=== PATIENT | male | born 1995 | race African-American/Black ===

== ENCOUNTER 2025-03-15 14:40 | Inpatient (IN) | payer BC, MEDICAID ==
[~2025-03-15] VITALS: Ht 193 cm; Wt 86.2 kg
[2025-03-15 21:30] VITALS: BP 132/72; PULSE 77; RESP 18; TEMP 97.8; O2SAT 97
[2025-03-15] MEDS ORDERED: loperamide 2mg capsule PO PRN (21:45)
[2025-03-15] MEDS ORDERED: mag hydrox/Alum hydrox/simeth 30ml oral suspension PO PRN (21:45)
[2025-03-15] MEDS ORDERED: magnesium hydroxide 30ml (MOM) UD suspension PO PRN (21:45)
[2025-03-16] MEDS ORDERED: LEVE10002 PO (06:47)
[2025-03-16 07:00] VITALS: RESP 14; O2SAT 99
[2025-03-16 07:33] VITALS: BP 123/69; PULSE 59; RESP 14; TEMP 97.8; O2SAT 99
[2025-03-16 11:25] LABS: MEAN PLATELET VOLUME 8.3 FL (7.4-10.4); RED CELL DISTRIBUTION WIDTH 13.8 % (11.5-14.5)
[2025-03-16 12:03] LABS: CHOL/HDL RATIO 1.8 (0.00-4.99); CREATININE 0.82 MG/DL (0.60-1.10); ETHANOL < 10 MG/DL (<10); LDL CHOLESTEROL 59 MG/DL (50-100); TOTAL CARBON DIOXIDE 28.1 MMOL/L (24-32); eCRCL 159 ML/MIN; eGFR > 90 ML/MIN
--- NOTE | 2025-03-16 13:49 | HISTORY AND PHYSICAL ---
History of Present Illness History of Present Illness Patient admitted on 5150 DTS, per 5150, had banged his head on a cement wall, cement currently have a 1cm subdural hematoma with a 6.3 mm shift across mid line. He is refusing assessment today, per chart notes, pt is homeless with hx of meth and THC use, he is diagnosed BP, PTSD and depression. told his nurse that he felt hopeless and slept a lot prior to the suicide attempt. Allergies: Uncoded Allergies: NKDA (Allergy, Unknown, 03/15/25) Past Family History Patient History: Patient reports no known family medical history. Mental Status Exam OBSERVATION Comments NOT ABLE TO ASSESS, PT IS REFUSING TO BE SEEN AT THIS TIME BEHAVIOR Behavior: Withdrawn INSIGHT Insight: Poor Judgment: Poor Assessment/Plan Problems/Diagnosis: (1) Suicide attempt (2) Major depressive disorder, recurrent severe without psychotic features Additional Plan Medication management: 1.Start Zyprexa 5 mg bid 2. Continue lexapro 5 mg daily Continue Q 15 safety checks Legal : Convert to 5250 Total time spend: 20 minutes including but not limited to chart /lab review, consulting with patient RN/SW/CN, ordering meds/labs and documentation CODING VISIT-PSYCHIATRY Date of Service: Mar 16, 2025 Billing Provider: JAN LIPSCOMB DNP Psych Common Visit Codes: [id number] INP/OBS CARE (High) JAN LIPSCOMB DNP Mar 16, 2025 13:49
--- NOTE | 2025-03-16 16:22 | HISTORY AND PHYSICAL-Residence ---
History & Physical Providers to CC Resident Creating Document: GLORIA WARD, RES ~ History of Present Illness Reason for Admit\Complaint: Depression History of Present Illness This is a 29-year-old male with a history of BP, PTSD, depression was brought to the ER and was admitted on 5150 hold. Patient had banged his head on a cement wall., has a subdural hematoma with a 6.3 cm shift across midline. Patient reported he was feeling hungry and did not give any history. Allergies: Uncoded Allergies: NKDA (Allergy, Unknown, 03/15/25) Home Medications Home Medications Active Reported Keppra (Levetiracetam) 1,000 Mg Tablet 1 Tab PO Q12H Past Medical History Past Medical History Denied any past medical history Past Surgical History Surgical History Comment Denied any surgical history Family History Family History: Patient reports no known family medical history. Past Social History Social History Comment History of meth and THC use as per records ROS All Other Systems: Reviewed and Negative Exam Vitals: Vital Signs Date Time Temp Pulse Resp B/P (MAP) Pulse Ox O2 Delivery O2 Flow Rate FiO2 03/16/25 07:33 97.8 59 14 123/69 (87) 99 Room Air General: Awake cooperative in no acute distress. Flat affect HEENT normocephalic atraumatic extraocular movements are intact Neck supple, no JVD Chest: Clear to auscultation, no wheezes crackles rhonchi Heart: Regular rate rhythm, no murmur or gallop rub Abdomen is soft nontender no organomegaly Extremities no cyanosis clubbing or edema Neuro exam is grossly nonfocal. Patient was seen ambulating without assistance. Diagnostic Data Last Recorded Lab Results: 03/16/25 1058 03/16/25 1058 Additional Plan Assessment This is a 29-year-old male with a history of BP, PTSD, depression was brought to the ER and was admitted on 5150 hold. Patient had banged his head on a cement wall., has a subdural hematoma with a 6.3 cm shift across midline. Patient reported he was feeling hungry and did not give any history. Plan Depression PTSD Bipolar disorder -managed as per hospitalist Subdural hematoma -no image findings available in the hospital -ubdural hematoma with a 6.3 cm shift across midline. As per records Labs reviewed Pravahika Dalila M.D PGY2 Date of Service: Mar 16, 2025 Billing Provider: PASTORA MARTINS MD Common Visit Codes: [id number] INP/OBS CARE (HIGH) GLORIA WARD, RES Mar 16, 2025 16:22 PASTORA MARTINS MD Mar 16, 2025 22:17
[2025-03-16 17:35] VITALS: BP 157/108; PULSE 98; RESP 18; O2SAT 99
[2025-03-16] MEDS: haloperidol lactate 5mg/ml inj ONE (17:50)
[2025-03-16 19:00] VITALS: RESP 18; O2SAT 100
[2025-03-16 20:00] VITALS: BP 125/58; PULSE 100; RESP 18; TEMP 97.9; O2SAT 100
[2025-03-16] MEDS: OLANZAPINE 5 MG TABLET PO SCH (20:00)
--- NOTE | 2025-03-16 20:18 | RADIOLOGY REPORT ---
CLINICAL INDICATION: Hand Injury RIGHT TECHNIQUE: 3 radiographic views of the right hand were obtained. Comparison: None FINDINGS/IMPRESSION: There is acute comminuted, mildly displaced fracture of the distal part of the 3rd digit distal phala nx. There is associated soft tissue edema. There appears to be chronic fracture deformity of the distal radius and distal 5th metacarpal. No dislocation.
--- NOTE | 2025-03-16 20:28 | RADIOLOGY REPORT ---
EXAM: CT CT HEAD INDICATION: Head injury 5150 HIT HEAD ON CONCRETE WALL. TRANSFERRED FROM OTHER FACIALITY AND ONLY K NOW HE has a subdural hematoma with a 6.3 cm shift across midline. TECHNIQUE: CT of the head without intravenous contrast. Radiation Dose Information: CT Dose: CTDI volume is 63.79 mGy. Dose-length product is 1171.29 mGy*cm The dose indicators for CT are the volume Computed Tomography (CT) Dose Index (CTDIvol) and the Dose Length Product (DLP), and are measured in units of mGy and mGy-cm, respectively. These indicators are not patient dose, but values generated from the CT scanner acquisition factors. The report includes radiation exposure data for exposures received during this examination. COMPARISON: None FINDINGS: There is a hyperdense extra-axial hematoma contrast in the left cerebral convexity measuring up to 13 mm in greatest thickness. There is local regional mass effect upon the underlying left cerebral mauricio sphere. There is approximately 1 cm of rightward midline shift. There is effacement of the left late ral ventricle with entrapment of the right lateral ventricle. There is no definite uncal herniation. The orbits are normal. The visualized paranasal sinuses and mastoid air cells are clear. The soft t issues and osseous structures appear within normal limits. IMPRESSION: 1. Acute left convexity extra-axial hematoma with locoregional mass effect and midline shift as detai led. Entrapment of the ventricles as detailed. Comparison with prior outside imaging is suggested in assessing acuity and interval change.
[2025-03-16 21:50] VITALS: BP 138/75; PULSE 81; RESP 14; TEMP 98.7; O2SAT 100
[2025-03-16] MEDS ORDERED: magnesium sulf-water 2g/50mL 50 ML IV PRN (22:15)
[2025-03-16] MEDS ORDERED: potassium Cl 40MEQ/1/2NS 520ml 520 ML IV PRN (22:15)
[2025-03-16] MEDS ORDERED: ondansetron/PF 4mg/2ml inj IV PRN (22:15)
[2025-03-16] MEDS ORDERED: magnesium sulf-water 4G/100mL 100 ML IV PRN (22:15)
[2025-03-16] MEDS ORDERED: potassium Cl 20 mEq SR tablet PO PRN ×2 (22:15)
[2025-03-16] MEDS ORDERED: magnesium Cl slow-release 64mg tablet PO PRN (22:15)
[2025-03-16] MEDS ORDERED: magnesium hydroxide 30ml (MOM) UD suspension PO PRN (22:15)
[2025-03-16] MEDS ORDERED: mag hydrox/Alum hydrox/simeth 30ml oral suspension PO PRN (22:15)
--- NOTE | 2025-03-16 22:53 | CONSULTATION REPORT ---
History of Present Illness Providers to CC ~ Reason for Admit\Admit Dx: Depression History of Present Illness [facility] Note # Demographics Consult Type: General Neurology Patient Location: Inpatient First Name: Ed Last Name: Jj Date of : 1995 Age: 29 Gender: Male Facility: [facility] Time of Initial Page (): 03/16/2025 21:41 Time of Return Call ( Time): 03/16/2025 21:42 # HPI History: 29 year-old male was admitted with a traumatic SDH measuring 6mm. Repeat head CT after admission revealed worsening SDH of 13 mm with new midline shift. # Exam Time of Exam (): 03/16/2025 22:42 Vitals: vital signs reviewed Mental Status: - lethargic Language: - aphasia Cranial Nerves: - no facial droop Motor: - normal strength # Data Head CT: - hemorrhage # Assessment Impression: SDH with midline shift # Plan Target Blood Pressure: SBP < 160 Other: - consult neurosurgery - I have discussed my recommendations with the referring provider Disposition: consider transfer to tertiary facility for higher level neurological care # Logistics Attestation of consult completion: The patient is located at: [facility]. Facility staff participated in the visit. I performed this telemedicine visit from my offsite office utilizing interactive 2 way audio and visual telecommunication technology. Total time spent in telemedicine encounter: I spent 15 minutes reviewing clinical data and/or imaging, obtaining history, examining the patient, communicating with the onsite care team, and in preparation of this report. # Demographics First Name: Ed Last Name: Jj Facility: [facility] Electronically signed at 03/16/2025 22:47 () by Yumiko Ibrahim MD Allergies: Uncoded Allergies: NKDA (Allergy, Unknown, 03/15/25) Home Medications Home Medications Active Reported Keppra (Levetiracetam) 1,000 Mg Tablet 1 Tab PO Q12H Past Family History Family History: Patient reports no known family medical history. Physical Exam Last Vital Signs Recorded: Temperature: 98.7, Source: Temporal, Heart Rate: 81, Respiratory Rate: 14, BP: 138/75, Pulse Oximetry: 100, Weight: 86.200 Results Diagram Lab Result Diagram: 03/16/25 1058 03/16/25 1058 YUMIKO IBRAHIM MD Mar 16, 2025 22:53
[2025-03-17] MEDS ORDERED: K and/or MAG REPLACEMENT MC SCH (08:00)
[2025-03-17] MEDS ORDERED: ESCITALOPRAM 10 mg tablet 10 MG TABLET PO SCH (08:00)
[2025-03-17] MEDS ORDERED: docusate sod 100mg capsule PO SCH (08:00)
== END 2025-03-16 21:40 | disposition short-term general hospital (02) | DRG 885 ==
LOC: ADULT MH 21:06 → ORTHO 4S 03-16 21:40
PROVIDERS: ADMIT Psychiatry & Neurology Psychiatry; ATTEND Psychiatry & Neurology Psychiatry
DX: F33.2 Major depressive disorder, recurrent severe without psychotic features (principal); S06.5XAA Traumatic subdural hemorrhage with loss of consciousness status unknown, initial encounter; Z79.899 Other long term (current) drug therapy; F43.10 Post-traumatic stress disorder, unspecified; X58.XXXA Exposure to other specified factors, initial encounter; Y92.89 Other specified places as the place of occurrence of the external cause; Y93.89 Activity, other specified; Y99.8 Other external cause status
CPT/HCPCS: 36415; 70450; 73130; 80053; 80061; 80178; 80183; 80320; 82948; 83036; 84443; 85025; 87081; A6258; J1200; J1630; J2060

== ENCOUNTER 2025-03-19 13:41 | Inpatient (IN) | payer BC, MEDICAID ==
[~2025-03-19] VITALS: Ht 193 cm; Wt 86.2 kg
[~2025-03-19 13:41] MED LIST: LEVE10002 PO
[2025-03-19] MEDS ORDERED: magnesium sulf-water 2g/50mL 50 ML IV PRN (20:45)
[2025-03-19] MEDS ORDERED: potassium Cl 40MEQ/1/2NS 520ml 520 ML IV PRN (20:45)
[2025-03-19] MEDS ORDERED: magnesium hydroxide 30ml (MOM) UD suspension PO PRN (20:45)
[2025-03-19] MEDS ORDERED: mag hydrox/Alum hydrox/simeth 30ml oral suspension PO PRN (20:45)
[2025-03-19] MEDS ORDERED: magnesium Cl slow-release 64mg tablet PO PRN (20:45)
[2025-03-19] MEDS ORDERED: magnesium sulf-water 4G/100mL 100 ML IV PRN (20:45)
[2025-03-19] MEDS ORDERED: potassium Cl 20 mEq SR tablet PO PRN ×2 (20:45)
[2025-03-19] MEDS: HYDROcodone/acetaminophen 5mg/325mg tablet PO PRN (21:27)
[2025-03-19 22:00] VITALS: BP 129/68; PULSE 68; RESP 16; TEMP 98.4; O2SAT 99
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
[2025-03-20 05:00] VITALS: BP 127/70; PULSE 82; RESP 16; TEMP 98.4; O2SAT 99
[2025-03-20] MEDS: K and/or MAG REPLACEMENT MC SCH (07:01)
[2025-03-20] MEDS: docusate sod 100mg capsule PO SCH (08:28)
[2025-03-20 09:59] LABS: MEAN PLATELET VOLUME 8.9 FL (7.4-10.4); RED CELL DISTRIBUTION WIDTH 13.7 % (11.5-14.5)
[2025-03-20 10:00] VITALS: BP 123/67; PULSE 81; RESP 17; TEMP 97.6; O2SAT 98
[2025-03-20 11:28] LABS: CREATININE 0.83 MG/DL (0.60-1.10); TOTAL CARBON DIOXIDE 32.3 MMOL/L (24-32); eCRCL 157 ML/MIN; eGFR > 90 ML/MIN
[2025-03-20 14:35] VITALS: BP 131/76; PULSE 67; RESP 17; TEMP 98.1; O2SAT 97
--- NOTE | 2025-03-20 17:46 | PROGRESS NOTE ---
Daily Progress Note Providers to CC ~ Antibiotic Timeout Antibiotic Ordered?: No Subjective Brief review of patient's previous visit note " A 29-year-old male with no past medical history but has history of bipolar disorder, suicidal intention, depression presented as a transfer from [place] after he hit his head against the wall and a CT head showing subdural hematoma two days ago. After medical clearance patient was transferred to mental health unit in view of depression and suicidal attempt. Patient hit his head against the wall again in mental health unit and a repeat head showed worsening subdural hematoma. Spoke to Dr. Francis (trauma surgeon at [facility]) with regards to the patient's current situation. Dr. Francis requested an ICU bed at [facility] which the transfer center is discussed with the supervisor brine at the hospital. Dr. Francis requested for CT head images on a disc. Patient was transferred to [facility] for higher level of care and for possible craniotomy." Patient is transferred back to [facility] last night.Patient underwent craniectomy on 03/17/2025. Patient was transferred back to [facility] after the surgery and after stabilizing the patient. Patient was cleared for discharge from [facility] to [facility] in terms of clinical stability.Patient remained hemodynamically stable without neurological deficit post surgery. I evaluated the patient today in presence of nursing staff he responded appropriately and cooperated very well during physical examination. 1798 orders are already placed in patient needs sitter. We will also get the psychiatric consultation. Patient denies any excessive pain over the head , no headaches , able to eat and no focal neurological deficit noticed. Objective Vital Signs Date Time Temp Pulse Resp B/P (MAP) Pulse Ox O2 Delivery O2 Flow Rate FiO2 03/20/25 14:35 98.1 67 17 131/76 (94) 97 Room Air Result Diagram: 03/20/25 0423 03/20/25 1027 General-patient not in any acute distress, alert awake ill-appearing, age- appropriate, looks comfortable, able to communicate his needs HEENT-status post craniotomy dressing in place over head, neck supple without elevated JVD, No lymphadenopathy bilaterally. Eyes-no icterus or pallor seen in eyes Chest-clear to auscultation bilaterally, breathing nonlabored no tachypnea, no wheezing, no crepitation, no crackles. Heart-S1-S2 normal, regular heart rate no murmur Abdomen bowel sounds positive on auscultation, soft nondistended nontender no guarding, no rigidity Skin no active skin rash, status post craniotomy dressing in place over head, Neurology-grossly intact, awake oriented Extremity- no pedal edema able to move all 4 extremities Psychiatry - patient is not confused or agitated cooperated during physical examination Problem\\Assessment\\Plan Patient is transferred back to [facility] last night.Patient underwent craniectomy on 03/17/2025. Patient was transferred back to [facility] after the surgery and after stabilizing the patient. Patient was cleared for discharge from [facility] to [facility] in terms of clinical stability.Patient remained hemodynamically stable without neurological deficit post surgery. I evaluated the patient today in presence of nursing staff he responded appropriately and cooperated very well during physical examination. 1798 orders are already placed in patient needs sitter. We will also get the psychiatric consultation. Patient denies any excessive pain over the head , no headaches , able to eat and no focal neurological deficit noticed. Left subdural hematoma status post craniectomy on 03/17/2025 GCS: 15 Skull has been closed with absorbable suture and Dermabond Continue to monitor for surgical wound for infection Follow up with Neurosurgery Clinic in two weeks No further imaging required Appreciate neurosurgery recommendations from [facility] as per above On Keppra Right hand committed at fracture X-ray:acute comminuted, mildly displaced fracture of the distal part of the 3rd digit distal phalanx Pain management Bipolar PTSD Depression Suicidal intention 1798, sitter Psychiatric consultation requested Code status: Full code Diet: Regular DVT prophylaxis: SCD Patient's current condition is guarded I will continue to follow patient in a.m.. Date of Service: Mar 20, 2025 Billing Provider: BHUMIKA GILLILAND MD Common Visit Codes: [id number] INP/OBS CARE(HIGH) BHUMIKA GILLILAND MD Mar 20, 2025 17:46
[2025-03-20 18:00] VITALS: BP 145/83; PULSE 65; RESP 16; TEMP 98.1; O2SAT 97
--- NOTE | 2025-03-20 18:28 | [facility] CONSULT REPORT ---
[facility] Procedure Note [facility] Procedure Note Consult [facility] Note # Demographics Consult Type: General Neurology Patient Location: Inpatient First Name: Ed Last Name: Elkin Date of : 1995 Age: 29 Gender: Male Facility: [facility] Time of Initial Page (): 03/20/2025 18:18 Time of Return Call (): 03/20/2025 18:18 # HPI History: 29yom with bipolar disease, suicidal ideation, depression who p/w craniotomy with hematoma removal on 03/17/25. He was hitting his head on the wall until he developed subdural hematomas. Neuro checks have been within normal limits. Pt has been dropping things from his right hand and has a loss in dex terity all day today. # Scores Time of exam and NIHSS (): 03/20/2025 18:22 Level of Consciousness 1a: [0] = Alert; keenly responsive LOC Questions 1b: [0] = Answers both questions correctly LOC Commands 1c: [0] = Performs both tasks correctly Best Gaze 2: [0] = Normal Visual 3: [0] = No visual loss Facial Palsy 4: [0] = Normal symmetrical movements Motor Arm Left 5a: [0] = No drift Motor Arm Right 5b: [0] = No drift Motor Leg Left 6a: [0] = No drift Motor Leg Right 6b: [0] = No drift Limb Ataxia 7: [0] = Absent Sensory 8: [0] = Normal Best Language 9: [0] = No aphasia Dysarthria 10: [0] = Normal Extinction and Inattention 11: [0] = No abnormality NIHSS Total: 0 # Data Head CT: - per radiologist read acute left convexity aextra-axial hematoma with locoregional mass effect and MLS # Plan Thrombolytic/Intervention: NOT IV Thrombolysis or IA Intervention candidate Thrombolytic Exclusion: > 4.5 hours Intraarterial Exclusion: - clinical exam not consistent with presence of large vessel occlusion (LVO), can reconsider if LVO found on vascular imaging Imaging: (urgency: STAT): - CT Head without contrast Repeat CTH, call back if any abnormal results Imaging: (urgency: routine): - MRI Brain with AND without contrast Other: - If patient has any neurological deterioration please call me back immediately # Logistics Attestation of consult completion: The patient is located at: [facility]. Facility staff participated in the visit. I performed this telemedicine visit from my offsite office utilizing interactive 2 way audio and visual telecommunication technology. Total time spent in telemedicine encounter: I spent 23 minutes reviewing clinical data and/or imaging, obtaining history, examining the patient, communicating with the onsite care team, and in preparation of this report. # Demographics First Name: Ed Last Name: Elkin Facility: [facility] REYES LIRIANO MD Mar 20, 2025 18:28
[2025-03-20] MEDS: ondansetron/PF 4mg/2ml inj IV PRN (19:25)
--- NOTE | 2025-03-20 20:16 | RADIOLOGY REPORT ---
EXAM: CT CT HEAD W/ IV CONTRAST INDICATION: Status post craniotomy, history of subdural hematoma TECHNIQUE: CT of the head with intravenous contrast. Radiation Dose Information: CT Dose: CTDI volume is 62.75 mGy. Dose-length product is 1246.47 mGy*cm The dose indicators for CT are the volume Computed Tomography (CT) Dose Index (CTDIvol) and the Dose Length Product (DLP), and are measured in units of mGy and mGy-cm, respectively. These indicators are not patient dose, but values generated from the CT scanner acquisition factors. The report includes radiation exposure data for exposures received during this examination. COMPARISON: CT CT HEAD on DOS: 03/16/25 FINDINGS: Interval left craniotomy presumably for evacuation of the previously seen left convexity extra-axial hematoma. There is fluid and mild hyperdensity within the left extra-axial space. Scattered pneumocep halus is seen. Interval decrease in locoregional mass effect and midline shift, with rightward shift now measuring approximately 5 mm. There is no hydrocephalus. No acute infarct is seen. Soft tissue sw elling overlies the operative site. The orbits are normal. The paraspinal soft tissues are unremarkable.. IMPRESSION: 1. Postoperative changes status post presumed evacuation of left convexity subdural hematoma with pos toperative changes as detailed. Interval decrease in locoregional mass effect and midline shift. Co ntinued close interval follow-up is recommended.
[2025-03-20 22:00] VITALS: BP 144/87; PULSE 108; RESP 20; TEMP 100; O2SAT 99
--- NOTE | 2025-03-20 22:31 | CONSULTATION REPORT ---
History of Present Illness Providers to CC ~ Reason for Admit\Admit Dx: Subdural hematoma status post craniectomy History of Present Illness [facility] # Demographics Consult Type: General Neurology Patient Location: Inpatient First Name: Ed Last Name: Elkin Date of : 1995 Age: 29 Gender: Male Facility: [facility] Time of Initial Page ([place] ): 03/20/2025 21:53 Time of Return Call ([place] ): 03/20/2025 21:54 # HPI History: 29 year old male with depression, suicidal ideation, s/p craniotomy for self- induced subdural hematoma I was requested to evaluate for a neurologic concern. 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 He tried to hit his head against the wall and developed subdural hematoma and transferred to [facility] for surgery. He was transferred back. Here he was with a sitter and was getting a psychiatric consultation and he was complaining of a headache. Neurology saw him yesterday and they suggested MRI Brain. They have been giving him tylenol so far. Per the nurses, the patient was alert, oriented at the beginning of the shift. He has severe, persistent headache. He feels warm to touch. He is also having increased word-finding difficulties. CT of the brain was acquired at 19:00 which I reviewed and showed expected post- operative changes and no evidence of recurrent hemorrhage. # Scores Time of exam and NIHSS ([place] ): 03/20/2025 22:03 Level of Consciousness 1a: [0] = Alert; keenly responsive LOC Questions 1b: [1] = Answers one correctly LOC Commands 1c: [0] = Performs both tasks correctly Best Gaze 2: [0] = Normal Visual 3: [0] = No visual loss Facial Palsy 4: [0] = Normal symmetrical movements Motor Arm Left 5a: [0] = No drift Motor Arm Right 5b: [0] = No drift Motor Leg Left 6a: [0] = No drift Motor Leg Right 6b: [0] = No drift Limb Ataxia 7: [0] = Absent Sensory 8: [0] = Normal Best Language 9: [1] = Snbn-hh-uxeitqaw aphasia Dysarthria 10: [1] = Itjr-zg-cxqccgvm dysarthria Extinction and Inattention 11: [0] = No abnormality NIHSS Total: 3 # Data Time Head CT personally read by me ([facility]): 03/20/2025 22:03 # Assessment Impression: 1. Increased confusion 2. Subdural hematoma s/p evacuation The patient has some neurologic changes in form of changes in his language and increased headaches. His imaging was normal. The only major post-surgical change at this point would be re-bleed, and his imaging from only a few hours demonstrated no evidence of a re-bleed and he was totally motor intact. I think it is reasonable to monitor for the evening and get MRI Brain without contrast in the AM. # Plan Other: - If patient has any neurological deterioration please call me back immediately Additional Recommendations: SUMMARY: == given recent normal imaging, no need for transfer == monitor overnight == MRI Brain without contrast in the AM Disposition: continue admission # Logistics Attestation of consult completion: The patient is located at: [facility]. Facility staff participated in the visit. I performed this telemedicine visit from my offsite office utilizing interactive 2 way audio and visual telecommunication technology. Consent: Verbal consent was obtained from the patient and/or family for this encounter. Total time spent in telemedicine encounter: I spent 20 minutes reviewing clinical data and/or imaging, obtaining history, examining the patient, communicating with the onsite care team, and in preparation of this report. Critical Care time: 15 minutes of this encounter were critical care time. Due to a high probability of clinically significant, life-threatening neurologic deterioration, the patient required my highest level of preparedness to intervene emergently. I spent this critical care time managing the patient in conjunction with on-site providers who requested my consultation. In addition to the above, this critical care time included recommendation and review of studies, including imaging; arranging an urgent treatment and management plan with on-site providers; evaluation of patient's response to treatment; and documentation. This critical care time was performed to assess and manage the high probability of imminent, life-threatening deterioration that could result in neurologic catastrophe. # Demographics First Name: Ed Last Name: Elkin Facility: [facility] Allergies: Uncoded Allergies: NKDA (Allergy, Unknown, 03/15/25) Home Medications Home Medications Active Reported Keppra (Levetiracetam) 1,000 Mg Tablet 1 Tab PO Q12H Past Family History Family History: Patient reports no known family medical history. Physical Exam Last Vital Signs Recorded: Temperature: 98.1, Source: Temporal, Heart Rate: 67, Respiratory Rate: 17, BP: 131/76, Pulse Oximetry: 97, Weight: 86.200 Results Diagram Lab Result Diagram: 03/20/25 0423 03/20/25 1027 BREE MARTINEZ MD Mar 20, 2025 22:31
[2025-03-21] VITALS (9 sets, daily range): BP systolic 112–139; BP diastolic 62–95; PULSE 61–94; RESP 11–18; TEMP 97.5–99.8; O2SAT 98–100
--- NOTE | 2025-03-21 20:16 | PROGRESS NOTE ---
Daily Progress Note Providers to CC ~ Antibiotic Timeout Antibiotic Ordered?: No Subjective Patient was seen in presence of sitter today patient responded very well to verbal commands cooperated just like yesterday and I have not noticed any new focal neurological deficit. Nursing staff Dawna concerned about the new neurological deficit tele neurology consult requested CT head and MRI of brain ordered. CT head findings reviewed. Objective Vital Signs Date Time Temp Pulse Resp B/P (MAP) Pulse Ox O2 Delivery O2 Flow Rate FiO2 03/21/25 18:30 67 03/21/25 16:00 98.4 18 120/71 (87) 100 Nasal Cannula 1.0 24 Result Diagram: 03/20/25 0423 03/20/25 1027 General-patient not in any acute distress, alert awake ill-appearing, age- appropriate, looks comfortable, able to communicate his needs HEENT-status post craniotomy dressing in place over head, neck supple without elevated JVD, No lymphadenopathy bilaterally. Eyes-no icterus or pallor seen in eyes Chest-clear to auscultation bilaterally, breathing nonlabored no tachypnea, no wheezing, no crepitation, no crackles. Heart-S1-S2 normal, regular heart rate no murmur Abdomen bowel sounds positive on auscultation, soft nondistended nontender no guarding, no rigidity Skin no active skin rash, status post craniotomy dressing in place over head, Neurology-grossly intact, awake oriented Extremity- no pedal edema able to move all 4 extremities Psychiatry - patient is not confused or agitated cooperated during physical examination Problem\Assessment\Plan Patient is transferred back to [facility] last night.Patient underwent craniectomy on 03/17/2025. Patient was transferred back to [facility] after the surgery and after stabilizing the patient. Patient was cleared for discharge from [facility] to [facility] in terms of clinical stability.Patient remained hemodynamically stable without neurological deficit post surgery. I evaluated the patient today in presence of nursing staff he responded appropriately and cooperated very well during physical examination. 1798 orders are already placed in patient needs sitter. We will also get the psychiatric consultation. Patient denies any excessive pain over the head , no headaches , able to eat and no focal neurological deficit noticed. Left subdural hematoma status post craniectomy on 03/17/2025 GCS: 15 Skull has been closed with absorbable suture and Dermabond Continue to monitor for surgical wound for infection Follow up with Neurosurgery Clinic in two weeks No further imaging required Appreciate neurosurgery recommendations from [facility] as per above On Keppra Right hand committed at fracture X-ray:acute comminuted, mildly displaced fracture of the distal part of the 3rd digit distal phalanx Pain management Bipolar PTSD Depression Suicidal intention 1798, sitter Psychiatric consultation requested Code status: Full code Diet: Regular DVT prophylaxis: SCD Patient's current condition is guarded I will continue to follow patient in a.m.. Date of Service: Mar 21, 2025 Billing Provider: BHUMIKA GILLILAND MD Common Visit Codes: [id number] INP/OBS CARE(HIGH) BHUMIKA GILLILAND MD Mar 21, 2025 20:16
[2025-03-22 06:00] VITALS: BP 116/70; PULSE 79; RESP 15; TEMP 99; O2SAT 99
[2025-03-22 06:05] LABS: MEAN PLATELET VOLUME 8.8 FL (7.4-10.4); RED CELL DISTRIBUTION WIDTH 13.4 % (11.5-14.5)
[2025-03-22 06:17] LABS: CREATININE 0.80 MG/DL (0.60-1.10); TOTAL CARBON DIOXIDE 30.3 MMOL/L (24-32); eCRCL 163 ML/MIN; eGFR > 90 ML/MIN
[2025-03-22 10:00] VITALS: BP 128/77; PULSE 94; RESP 14; TEMP 99; O2SAT 99
--- NOTE | 2025-03-22 17:54 | PROGRESS NOTE ---
Daily Progress Note Providers to CC ~ Antibiotic Timeout Antibiotic Ordered?: No Subjective The patient complains of weakness in his right hand and states that if he is holding a spoon for any length of time he will drop it this is very difficult to feed himself. The patient has a mildly comminuted fracture at the distal 3rd phalange and a chronic fracture at the 5th metacarpal. Objective Vital Signs Date Time Temp Pulse Resp B/P (MAP) Pulse Ox O2 Delivery O2 Flow Rate FiO2 03/22/25 10:00 99.0 94 14 128/77 (94) 99 Room Air 03/21/25 16:00 1.0 24 Result Diagram: 03/22/25 0502 03/22/25 0502 Gen. No acute distress alert and oriented 4 Lungs clear to ascultation bilaterally, no wheezes rales or rhonchi appreciated Heart normal sinus rhythm no murmurs rubs or clicks noted Abdomen soft nontender bowel sounds are normoactive Lower extremities no clubbing cyanosis, nor edema appreciated bilaterally Problem\Assessment\Plan Patient is transferred back to [facility] last night.Patient underwent craniectomy on 03/17/2025. Patient was transferred back to [facility] after the surgery and after stabilizing the patient. Patient was cleared for discharge from [facility] to [facility] in terms of clinical stability.Patient remained hemodynamically stable without neurological deficit post surgery. I evaluated the patient today in presence of nursing staff he responded appropriately and cooperated very well during physical examination. 1798 orders are already placed in patient needs sitter. We will also get the psychiatric consultation. Patient denies any excessive pain over the head , no headaches , able to eat and no focal neurological deficit noticed. Left subdural hematoma status post craniectomy on 03/17/2025 GCS: 15 Skull has been closed with absorbable suture and Dermabond Continue to monitor for surgical wound for infection Follow up with Neurosurgery Clinic in two weeks No further imaging required Appreciate neurosurgery recommendations from [facility] as per above On Keppra Right hand committed at fracture X-ray:acute comminuted, mildly displaced fracture of the distal part of the 3rd digit distal phalanx Pain management Right hand weakness Likely secondary to acute fracture has a 3rd phalanges however an MRI of the head with IV contrast is ordered. Bipolar PTSD Depression Suicidal intention 1798, sitter Psychiatric consultation requested Code status: Full code Diet: Regular DVT prophylaxis: SCD Date of Service: Mar 22, 2025 Billing Provider: CASEY BRYANT DO Common Visit Codes: [id number] INP/OBS CARE(HIGH) CASEY BRYANT DO Mar 22, 2025 17:54
--- NOTE | 2025-03-22 17:55 | RADIOLOGY REPORT ---
PROCEDURE: MR MRI HEAD Indication: s/p craniotomy for subdural hematoma COMPARISON: CT CT HEAD W/ IV CONTRAST on DOS: 03/20/25, TECHNIQUE: Multiplanar multisequence images of the brain are obtained. FINDINGS: There is no abnormal diffusion restriction. There is left craniotomy. There is left frontoparietal ex tra-axial fluid mixed densitycollection measuring 14 mm in thickness, similar to previous CT scan. Th ere is also presence of pneumocephalus within this collection. This collection appears indistinct fro m the underlying subdural hematoma described below it measures approximately 5.6 x 1.4 cm.. Subdural hematoma overlying the left frontal lobe measuring 5 mm in thickness. Subdural hematoma over lying the left temporal lobe measuring 3 mm in thickness. Minimal qkjf-ah-ertwq midline shift of approximately 4 mm, unchanged from prior CT. The ventricles ar e normal in size. The major intracranial flow voids are preserved. The cisterns are patent. Mastoids well pneumatized. Bilateral maxillary sinus disease. The sinuses and mastoids are well pneumatized. The visualized orbits are unremarkable. IMPRESSION: No acute cerebrovascular ischemia. Left frontoparietal extra-axial fluid collection measuring 14 mm in thickness at the site of the cran iotomy. This measures approximately 5.6 cm AP x 1.4 cm transverse. Overall, this appears similar to t he previous examination. Residual left frontal and temporal subdural hematoma measuring up to 5 mm in thickness. 3 mm dnsg-pw-uujiw midline shift, similar to prior CT. Other findings as described.
[2025-03-22 18:30] VITALS: BP 130/85; PULSE 94; RESP 14; TEMP 100; O2SAT 98
[2025-03-22 22:00] VITALS: BP 143/79; PULSE 73; RESP 16; TEMP 99.6; O2SAT 98
[2025-03-23 05:00] LABS: MEAN PLATELET VOLUME 8.3 FL (7.4-10.4); RED CELL DISTRIBUTION WIDTH 13.5 % (11.5-14.5)
[2025-03-23 05:13] LABS: CREATININE 0.82 MG/DL (0.60-1.10); TOTAL CARBON DIOXIDE 30.6 MMOL/L (24-32); eCRCL 159 ML/MIN; eGFR > 90 ML/MIN
[2025-03-23 06:00] VITALS: BP 133/79; PULSE 80; RESP 17; TEMP 97.7; O2SAT 99
[2025-03-23 08:59] VITALS: RESP 18
[2025-03-23 10:00] VITALS: BP 137/77; PULSE 103; RESP 14; TEMP 99.3; O2SAT 99
--- NOTE | 2025-03-23 16:13 | PROGRESS NOTE ---
Daily Progress Note Providers to CC ~ Antibiotic Timeout Antibiotic Ordered?: No Subjective The patient has no acute complaints his MRI demonstrated a 5 mm residual subdural hematoma and postop changes due to the craniotomy- there were no acute findings. Objective Vital Signs Date Time Temp Pulse Resp B/P (MAP) Pulse Ox O2 Delivery O2 Flow Rate FiO2 03/23/25 10:00 99.3 103 14 137/77 (97) 99 Room Air 03/21/25 16:00 1.0 24 Result Diagram: 03/23/2542603/23/25426 Gen. No acute distress alert and oriented 4 Lungs clear to ascultation bilaterally, no wheezes rales or rhonchi appreciated Heart normal sinus rhythm no murmurs rubs or clicks noted Abdomen soft nontender bowel sounds are normoactive Lower extremities no clubbing cyanosis, nor edema appreciated bilaterally Problem\\Assessment\\Plan Patient is transferred back to [facility] last night.Patient underwent craniectomy on 03/17/2025. Patient was transferred back to [facility] after the surgery and after stabilizing the patient. Patient was cleared for discharge from [facility] to [facility] in terms of clinical stability.Patient remained hemodynamically stable without neurological deficit post surgery. I evaluated the patient today in presence of nursing staff he responded appropriately and cooperated very well during physical examination. 1799 orders are already placed in patient needs sitter. We will also get the psychiatric consultation. Patient denies any excessive pain over the head , no headaches , able to eat and no focal neurological deficit noticed. Left subdural hematoma status post craniectomy on 03/17/2025 GCS: 15 Skull has been closed with absorbable suture and Dermabond Continue to monitor for surgical wound for infection Follow up with Neurosurgery Clinic in two weeks No further imaging required Appreciate neurosurgery recommendations from [facility] as per above On Keppra Right hand committed at fracture X-ray:acute comminuted, mildly displaced fracture of the distal part of the 3rd digit distal phalanx Pain management Right hand weakness Likely secondary to acute fracture has a 3rd phalanges however an MRI of the head with IV contrast is ordered. MRI demonstrates the following findings: "No acute cerebrovascular ischemia. Left frontoparietal extra-axial fluid collection measuring 14 mm in thickness at the site of the craniotomy. This measures approximately 5.6 cm AP x 1.4 cm transverse. Overall, this appears similar to the previous examination. Residual left frontal and temporal subdural hematoma measuring up to 5 mm in thickness. 3 mm zxng-tc-njjwv midline shift, similar to prior CT." The patient has no acute complaints in his weakness is stable Bipolar PTSD Depression Suicidal intention 1798, anater Psychiatric consultation requested Code status: Full code Diet: Regular DVT prophylaxis: SCD The patient is cleared to be evaluated by [facility] today 03/23/2025 Date of Service: Mar 23, 2025 Billing Provider: CASEY BRYANT DO Common Visit Codes: [id number] INP/OBS CARE(HIGH) CASEY BRYANT DO Mar 23, 2025 16:13
[2025-03-23 18:00] VITALS: BP 110/56; PULSE 85; RESP 12; TEMP 99.1; O2SAT 99
[2025-03-23 20:00] VITALS: RESP 12; O2SAT 99
[2025-03-23 22:00] VITALS: BP 128/78; PULSE 90; RESP 16; TEMP 98.2; O2SAT 96
[2025-03-24 05:00] LABS: MEAN PLATELET VOLUME 8.1 FL (7.4-10.4); RED CELL DISTRIBUTION WIDTH 13.3 % (11.5-14.5)
[2025-03-24 05:10] LABS: CREATININE 0.83 MG/DL (0.60-1.10); TOTAL CARBON DIOXIDE 30.7 MMOL/L (24-32); eCRCL 157 ML/MIN
[2025-03-24 05:11] LABS: eGFR > 90 ML/MIN
[2025-03-24 06:00] VITALS: BP 133/76; PULSE 82; RESP 18; TEMP 98.9; O2SAT 97
[2025-03-24 08:25] VITALS: RESP 16; O2SAT 99
[2025-03-24 10:00] VITALS: BP 140/75; PULSE 103; RESP 14; TEMP 97.9; O2SAT 100
--- NOTE | 2025-03-24 11:51 | RADIOLOGY REPORT ---
CLINICAL INFORMATION: 29 years old, Male; change in mental status. TECHNIQUE: Axial imaging was obtained through the brain without contrast. Coronal and sagittal reform atted images were obtained, reviewed, and stored. Images were reviewed in brain and bone windows. Al l CT scans at this medical facility are performed using dose modulation techniques as appropriate to a performed exam including the following: Automated exposure control was utilized; adjustment of the MA and/or KV according to patient size; and use of iterative reconstruction technique. CTDIvol = 52.4 8 mGy DLP = 787.58 mGy-cm COMPARISON: MR MRI HEAD on DOS: 03/22/25, CT CT HEAD W/ IV CONTRAST on DOS: 03/20/25, CT CT HEAD on DOS : 03/16/25 FINDINGS: Postsurgical changes of left craniotomy again noted with extra-axial fluid collection adjac ent to the craniotomy site measuring up to 1.4 cm in greatest thickness, minimally changed compared t o the prior exam with mixed density, including areas of hyperdense hemorrhage, also seen on the prior exam. Previously seen pneumocephalus has decreased compared to the prior exam. No new areas of acute intracranial hemorrhage. There is edema and hemorrhage in the left parietal scalp adjacent to the c raniotomy site, appears minimally changed compared to the prior exam. Slight rightward midline shift up to 3 mm, minimally changed compared to the exam dated 03/20/2025, but decreased compared to the ex am on 03/16/2025, prior to the craniotomy. Paranasal sinuses and mastoid air cells are clear. IMPRESSION: 1. Similar-appearing postsurgical changes of left craniotomy with extra-axial hemorrhage subjacent to the craniotomy site and overlying scalp edema and hemorrhage. 2. Slight rightward midline shift up to 3 mm, unchanged. 3. No new areas of acute intracranial hemorrhage are seen.
--- NOTE | 2025-03-24 13:28 | [facility] CONSULT REPORT ---
[facility] Procedure Note [facility] Procedure Note Consult [facility] # Demographics Consult Type: General Neurology Patient Location: Inpatient First Name: Ed Last Name: Elkin Date of : 1995 Age: 29 Gender: Male Facility: [facility] Time of Initial Page (): 03/24/2025 11:56 Time of Return Call (): 03/24/2025 11:56 Phone Agreement: - phone consult deemed mutually sufficient for patient care # HPI Chief Complaint: - speech changes History: 29M with recent SDH on 03/15 s/p evacuation presents with recurrent episodes of transient speech deficits and right hand weakness. Repeat CTH shows improved but persistent SDH and midline shift of up to 3mm, improved from 5mm. Patient back to his baseline neurologically. On keppra 1g # Scores Time of exam and NIHSS ([place] ): 03/24/2025 12:18 Level of Consciousness 1a: [0] = Alert; keenly responsive LOC Questions 1b: [0] = Answers both questions correctly LOC Commands 1c: [0] = Performs both tasks correctly Best Gaze 2: [0] = Normal Visual 3: [0] = No visual loss Facial Palsy 4: [0] = Normal symmetrical movements Motor Arm Left 5a: [0] = No drift Motor Arm Right 5b: [0] = No drift Motor Leg Left 6a: [0] = No drift Motor Leg Right 6b: [0] = No drift Limb Ataxia 7: [0] = Absent Sensory 8: [0] = Normal Best Language 9: [1] = Rsji-jf-zhrggspv aphasia Dysarthria 10: [0] = Normal Extinction and Inattention 11: [0] = No abnormality NIHSS Total: 1 # Data Head CT: - per radiologist read Stable extra-axial hemorrhage over the left cerebral convexity and 3mm of rightward midline shift # Assessment Impression: SDH Possible seizures # Plan Diagnostic Test: 24hr video EEG monitoring; consider longer if events in question not captured Medication: Continue Keppra Other: - If patient has any neurological deterioration please call me back immediately - I have discussed my recommendations with the referring provider Disposition: continue admission # Logistics Attestation of consult completion: The patient is located at: [facility]. Facility staff participated in the visit. I performed this telemedicine visit from my offsite office utilizing interactive 2 way audio and visual telecommunication technology. Consent: Verbal consent was obtained from the patient and/or family for this encounter. Total time spent in telemedicine encounter: I spent 10 minutes reviewing clinical data and/or imaging, obtaining history, examining the patient, communicating with the onsite care team, and in preparation of this report. Electronically signed at 03/24/2025 13:27 ([place] Time) by Sha Vargas MD Neuro Consult Order placed for: Yes SHA VARGAS MD Mar 24, 2025 13:28
[2025-03-24 18:00] VITALS: BP 128/71; PULSE 99; RESP 14; TEMP 99; O2SAT 99
--- NOTE | 2025-03-24 18:08 | PROGRESS NOTE ---
Daily Progress Note Providers to CC ~ Antibiotic Timeout Antibiotic Ordered?: No Subjective The patient has been medically cleared to be evaluated by [facility] when this morning the patient had a transient episode lasting less than 15 minutes of expressive aphasia the patient became confused and had difficulty speaking and experience word-finding. The patient has a similar episode on the and a MRI of the head has been obtained Objective Vital Signs Date Time Temp Pulse Resp B/P (MAP) Pulse Ox O2 Delivery O2 Flow Rate FiO2 03/24/25 10:00 97.9 103 14 140/75 (96) 100 Room Air 03/21/25 16:00 1.0 24 Result Diagram: 03/24/2542903/24/25429 Gen. No acute distress alert and oriented 4 HEENT staple line is present in his scalp on the left- which is clean dry and intact Lungs clear to ascultation bilaterally, no wheezes rales or rhonchi appreciated Heart normal sinus rhythm no murmurs rubs or clicks noted Abdomen soft nontender bowel sounds are normoactive Lower extremities no clubbing cyanosis, nor edema appreciated bilaterally Problem\\Assessment\\Plan Patient is transferred back to [facility] last night.Patient underwent craniectomy on 03/17/2025. Patient was transferred back to [facility] after the surgery and after stabilizing the patient. Patient was cleared for discharge from [facility] to [facility] in terms of clinical stability. I evaluated the patient today in presence of nursing staff he responded appropriately and cooperated very well during physical examination. 1799 orders are already placed in patient needs sitter. We will also get the psychiatric consultation. Patient denies any excessive pain over the head , no headaches. 03/24/2025 the the patient has been medically cleared to be evaluated by [facility] yesterday however the patient has a episode of expressive aphasia this morning that lasted less than 15 minutes a evaluation for seizure with a 24 hours video EEG is in process and will be completed late tomorrow morning. Left subdural hematoma status post craniectomy on 03/17/2025 GCS: 15 Skull has been closed with absorbable suture and Dermabond Continue to monitor for surgical wound for infection Follow up with Neurosurgery Clinic in two weeks No further imaging required Appreciate neurosurgery recommendations from [facility] as per above [facility] Transient metabolic encephalopathy Telemedicine neurology consult with Sha Munoz recommended a 24 hour video assisted EEG which the patient is in the midst of Continue Keppra Right hand committed at fracture X-ray:acute comminuted, mildly displaced fracture of the distal part of the 3rd digit distal phalanx Pain management Right hand weakness Likely secondary to acute fracture has a 3rd phalanges however an MRI of the head with IV contrast is ordered. MRI demonstrates the following findings: "No acute cerebrovascular ischemia. Left frontoparietal extra-axial fluid collection measuring 14 mm in thickness at the site of the craniotomy. This measures approximately 5.6 cm AP x 1.4 cm transverse. Overall, this appears similar to the previous examination. Residual left frontal and temporal subdural hematoma measuring up to 5 mm in thickness. 3 mm [id number] midline shift, similar to prior CT." The patient has no acute complaints in his weakness is stable Bipolar PTSD Depression Suicidal intention 1798, sit Psychiatric consultation requested Code status: Full code Diet: Regular DVT prophylaxis: SCD Disposition: To be evaluated by [facility] once medically cleared Date of Service: Mar 24, 2025 Billing Provider: CASEY BRYANT DO Common Visit Codes: [id number] INP/OBS CARE(HIGH) CASEY BRYANT DO Mar 24, 2025 18:08
--- NOTE | 2025-03-24 21:42 | [facility] NEURO CONSULT REPORT ---
[facility] Procedure Note [facility] Procedure Note Consult [facility] EEG Note # Demographics Type of EEG Read: - Continuous EEG - video Patient Location: Inpatient First Name: Ed Last Name: Elkin Date of : 1995 Age: 29 Gender: Male Facility: [facility] Time of Initial Page (): 03/24/2025 13:50 Time of Return Call ([place] Time): 03/24/2025 14:30 # EEG Interpretation Start Time of EEG Read ( Time): 03/24/2025 14:24 Stop Time of EEG Read ([place] Time): 03/24/2025 15:23 Duration: 0h 59m Technical Details: - The EEG electrodes were placed using the standard International 10-20 system of electrode placement. Video and an accessory EKG lead were used during the course of this study. - This study was recorded using the [employer] EEG software Indication: Possible seizure # Description Photic Stimulation: NOT Performed Hyperventilation: NOT performed Phases Captured: - awake Symmetry: symmetric Posterior Dominant Rhythm: The record is continuous, of normal amplitude and bilaterally symmetrical. There is poorly sustainedposterior dominant rhythm at 8-9 Hz. There is a moderate amount of diffuse low amplitude 15-25 Hz beta activity and an appropriate amount of 4-7 Hz theta activity during wakefulness. Occasional significant <4 Hz delta activity is present during wakefulness. Amplitude: normal Reactivity: yes Variability: yes Continuity: continuous EKG: NSR # Abnormalities Epileptiform Abnormalities: - NOT present Focal Slowing: no Seizure: - NOT present No push button events Artifact: Left frontal and central electrode artifact throughout # Impression Impression: abnormal 1. mild Diffuse Slowing # Clinical Correlation Clinical Correlation: 1. Diffuse slowing is non-specific and may be seen in the setting of diffuse cerebral dysfunction; such as toxic/metabolic/infectious encephalopathy or heavily sedating medication use. # Demographics First Name: Ed Last Name: Elkin Facility: [facility] Neuro Consult Order placed for: Yes SAMUEL KATE MD Mar 24, 2025 21:42
[2025-03-24 22:00] VITALS: BP 137/42; PULSE 103; RESP 16; TEMP 98.7; O2SAT 99
[2025-03-25 04:54] LABS: MEAN PLATELET VOLUME 8.0 FL (7.4-10.4); RED CELL DISTRIBUTION WIDTH 13.5 % (11.5-14.5)
[2025-03-25 05:10] LABS: CREATININE 0.81 MG/DL (0.60-1.10); TOTAL CARBON DIOXIDE 29.2 MMOL/L (24-32); eCRCL 161 ML/MIN; eGFR > 90 ML/MIN
[2025-03-25 06:00] VITALS: BP 131/64; PULSE 63; RESP 16; TEMP 97.8; O2SAT 99
[2025-03-25 10:00] VITALS: BP 130/81; PULSE 58; RESP 18; TEMP 97.8; O2SAT 100
--- NOTE | 2025-03-25 13:44 | PROGRESS NOTE ---
Daily Progress Note Providers to CC ~ Antibiotic Timeout Antibiotic Ordered?: No Subjective CHIEF COMPLAINT-NO OVERNIGHT EVENTS I FEEL FINE HE STATES HE SAYS HE CAN NOT TOLERATE THE EEG HE WAS HAVING A HEADACHE AND HE JUST CAN TOLERATE IT AND HE DOES NOT THINK HE WANTS IT. REVIEW OF SYSTEMS NEGATIVE FOR ALL 10 SYSTEMS REVIEWED Objective Vital Signs Date Time Temp Pulse Resp B/P (MAP) Pulse Ox O2 Delivery O2 Flow Rate FiO2 03/25/25 07:59 Room Air 03/24/25 22:00 98.7 103 16 137/42 (73) 99 03/24/25 18:00 5.0 03/21/25 16:00 24 Result Diagram: 03/25/25 0434 03/25/25 0434 Gen. No acute distress alert and oriented 4 HEENT staple line is present in his scalp on the left- which is clean dry and intact Lungs clear to ascultation bilaterally, no wheezes rales or rhonchi appreciated Heart normal sinus rhythm no murmurs rubs or clicks noted Abdomen soft nontender bowel sounds are normoactive Lower extremities no clubbing cyanosis, nor edema appreciated bilaterally Problem\\Assessment\\Plan Patient is transferred back to [facility] last night.Patient underwent craniectomy on 03/17/2025. Patient was transferred back to [facility] after the surgery and after stabilizing the patient. Patient was cleared for discharge from [facility] to [facility] in terms of clinical stability. I evaluated the patient today in presence of nursing staff he responded appropriately and cooperated very well during physical examination. 1799 orders are already placed in patient needs sitter. We will also get the psychiatric consultation. Patient denies any excessive pain over the head , no headaches. 03/24/2025 the the patient has been medically cleared to be evaluated by [facility] yesterday however the patient has a episode of expressive aphasia this morning that lasted less than 15 minutes a evaluation for seizure with a 24 hours video EEG is in process and will be completed late tomorrow morning. Left subdural hematoma status post craniectomy on 03/17/2025 GCS: 15 Skull has been closed with absorbable suture and Dermabond Continue to monitor for surgical wound for infection Follow up with Neurosurgery Clinic in two weeks No further imaging required Appreciate neurosurgery recommendations from [facility] as per above On [facility] Transient metabolic encephalopathy Telemedicine neurology consult with Sha Munoz recommended a 24 hour video assisted EEG which the patient is in the midst of Continue Keppra Right hand committed at fracture X-ray:acute comminuted, mildly displaced fracture of the distal part of the 3rd digit distal phalanx Pain management Right hand weakness Likely secondary to acute fracture has a 3rd phalanges however an MRI of the head with IV contrast is ordered. MRI demonstrates the following findings: "No acute cerebrovascular ischemia. Left frontoparietal extra-axial fluid collection measuring 14 mm in thickness at the site of the craniotomy. This measures approximately 5.6 cm AP x 1.4 cm transverse. Overall, this appears similar to the previous examination. Residual left frontal and temporal subdural hematoma measuring up to 5 mm in thickness. 3 mm [id number] midline shift, similar to prior CT." The patient has no acute complaints in his weakness is stable Bipolar PTSD Depression Suicidal intention 1798, sit Psychiatric consultation requested Code status: Full code Diet: Regular DVT prophylaxis: SCD Disposition: To be evaluated by [facility] once medically cleared Patient is medically cleared pending mental health evaluation for possible discharge Date of Service: Mar 25, 2025 Billing Provider: BRANDON GALAN MD Common Visit Codes: [id number] INP/OBS CARE(HIGH) BRANDON GALAN MD Mar 25, 2025 13:44
[2025-03-25 18:30] VITALS: BP 124/69; PULSE 89; RESP 16; TEMP 97.6; O2SAT 98
[2025-03-25 22:00] VITALS: BP 134/72; PULSE 82; RESP 14; TEMP 98.2; O2SAT 97
[2025-03-26 06:00] VITALS: BP 123/67; PULSE 68; RESP 14; TEMP 98.4; O2SAT 98
[2025-03-26 08:00] VITALS: RESP 16
[2025-03-26 10:00] VITALS: BP 123/71; PULSE 96; RESP 16; TEMP 98.1; O2SAT 99
[2025-03-26 18:00] VITALS: BP 136/68; PULSE 86; RESP 16; TEMP 97.8; O2SAT 99
--- NOTE | 2025-03-26 19:07 | PROGRESS NOTE ---
Daily Progress Note Providers to CC ~ Antibiotic Timeout Antibiotic Ordered?: No Subjective Patient was seen in presence of sitter he was sitting on recliner watching TV looks comfortable I did not noticed any focal neurological deficit in he looked much better since I saw him last. Patient is medically clear for mental health evaluation. Objective Vital Signs Date Time Temp Pulse Resp B/P (MAP) Pulse Ox O2 Delivery O2 Flow Rate FiO2 03/26/25 18:00 97.8 86 16 136/68 (90) 99 Room Air 03/24/25 18:00 5.0 Result Diagram: 03/25/25 0434 03/25/254 General-patient not in any acute distress, alert awake ill-appearing, age- appropriate, looks comfortable, able to communicate his needs HEENT-status post craniotomy dressing in place over head, neck supple without elevated JVD, No lymphadenopathy bilaterally. Eyes-no icterus or pallor seen in eyes Chest-clear to auscultation bilaterally, breathing nonlabored no tachypnea, no wheezing, no crepitation, no crackles. Heart-S1-S2 normal, regular heart rate no murmur Abdomen bowel sounds positive on auscultation, soft nondistended nontender no guarding, no rigidity Skin no active skin rash, status post craniotomy dressing in place over head, Neurology-grossly intact, awake oriented Extremity- no pedal edema able to move all 4 extremities Psychiatry - patient is not confused or agitated cooperated during physical examination Problem\\Assessment\\Plan Patient is transferred back to [facility] last night.Patient underwent craniectomy on 03/17/2025. Patient was transferred back to [facility] after the surgery and after stabilizing the patient. Patient was cleared for discharge from [facility] to [facility] in terms of clinical stability. I evaluated the patient today in presence of nursing staff he responded appropriately and cooperated very well during physical examination. 1799 orders are already placed in patient needs sitter. We will also get the psychiatric consultation. Patient denies any excessive pain over the head , no headaches. 03/24/2025 the the patient has been medically cleared to be evaluated by [facility] yesterday however the patient has a episode of expressive aphasia this morning that lasted less than 15 minutes a evaluation for seizure with a 24 hours video EEG is in process and will be completed late tomorrow morning. Left subdural hematoma status post craniectomy on 03/17/2025 GCS: 15 Skull has been closed with absorbable suture and Dermabond Continue to monitor for surgical wound for infection Follow up with Neurosurgery Clinic in two weeks No further imaging required Appreciate neurosurgery recommendations from [facility] as per above On [facility] Transient metabolic encephalopathy Telemedicine neurology consult with Sha Munoz recommended a 24 hour video assisted EEG which the patient is in the midst of Continue Keppra Right hand committed at fracture X-ray:acute comminuted, mildly displaced fracture of the distal part of the 3rd digit distal phalanx Pain management Right hand weakness Likely secondary to acute fracture has a 3rd phalanges however an MRI of the head with IV contrast is ordered. MRI demonstrates the following findings: "No acute cerebrovascular ischemia. Left frontoparietal extra-axial fluid collection measuring 14 mm in thickness at the site of the craniotomy. This measures approximately 5.6 cm AP x 1.4 cm transverse. Overall, this appears similar to the previous examination. Residual left frontal and temporal subdural hematoma measuring up to 5 mm in thickness. 3 mm [id number] midline shift, similar to prior CT." The patient has no acute complaints in his weakness is stable Bipolar PTSD Depression Suicidal intention 1799, sitter Psychiatric consultation requested Code status: Full code Diet: Regular DVT prophylaxis: SCD Disposition: To be evaluated by [facility] once medically cleared Patient is medically cleared pending mental health evaluation for possible discharge Date of Service: Mar 26, 2025 Billing Provider: BHUMIKA GILLILAND MD Common Visit Codes: [id number] INP/OBS CARE(HIGH) BHUMIKA GILLILAND MD Mar 26, 2025 19:07
[2025-03-26 22:00] VITALS: BP 128/68; PULSE 102; RESP 16; TEMP 98.1; O2SAT 99
[2025-03-27 06:00] VITALS: BP 128/65; PULSE 77; RESP 15; TEMP 98.2; O2SAT 98
[2025-03-27 08:00] VITALS: RESP 16
[2025-03-27 10:00] VITALS: BP 116/72; PULSE 114; RESP 16; TEMP 96.7; O2SAT 98
[2025-03-27 10:07] LABS: MEAN PLATELET VOLUME 8.0 FL (7.4-10.4); RED CELL DISTRIBUTION WIDTH 13.5 % (11.5-14.5)
[2025-03-27 10:19] LABS: CREATININE 0.88 MG/DL (0.60-1.10); TOTAL CARBON DIOXIDE 31.0 MMOL/L (24-32); eCRCL 148 ML/MIN; eGFR > 90 ML/MIN
[2025-03-27] MEDS ORDERED: ACET-1008 PO (12:39)
--- NOTE | 2025-03-27 19:06 | DISCHARGE SUMMARY ---
Discharge Summary Providers to CC ~ Discharge Summary Admission Diagnosis: Subdural hematoma s/p craniectomy Hospital Course DATE OF ADMISSION: March 19, 2025 DATE OF DISCHARGE: March 26, 2025 Lab testing done on March 27, 2025 CBC normal except for mild anemia hemoglobin 11.7 sed rate seven, procalcitonin 0.05 normal electrolytes and kidney function and liver enzymes. CT HEAD dated March 24, 2025 IMPRESSION: 1. Similar-appearing postsurgical changes of left craniotomy with extra-axial hemorrhage subjacent to the craniotomy site and overlying scalp edema and hemorrhage. 2. Slight rightward midline shift up to 3 mm, unchanged. 3. No new areas of acute intracranial hemorrhage are seen. MRI HEADIMPRESSION: No acute cerebrovascular ischemia. Left frontoparietal extra-axial fluid collection measuring 14 mm in thickness at the site of the craniotomy. This measures approximately 5.6 cm AP x 1.4 cm transverse. Overall, this appears similar to the previous examination. Residual left frontal and temporal subdural hematoma measuring up to 5 mm in thickness. 3 mm [id number]-[id number] midline shift, similar to prior CT. Discharge Diagnosis\\Comment: Left subdural hematoma status post craniectomy on 03/17/2025 Transient metabolic encephalopathy Right hand committed at fracture Right hand weakness Operations\\Procedures: None Consultants: Tele neurology specialist Jose Gleason, Sha Nagel , Jay Jay Green and Radha Metz Complications: None Condition on DC: Stable Changed Medications: Acetaminophen (Tylenol) 325 Mg Tablet 1 TAB PO Q8H PRN for pain or fever for 10 Days, #30 TAB (Changed from: QDAY PRN; 30) Continued Medications: Levetiracetam (Keppra) 1,000 Mg Tablet 1 TAB PO Q12H, TAB 0 Refills Discharge Summary: Patient is transferred back to [facility] last night.Patient underwent craniectomy on 03/17/2025. Patient was transferred back to [facility] after the surgery and after stabilizing the patient. Patient was cleared for discharge from [facility] to [facility] in terms of clinical stability. I evaluated the patient today in presence of nursing staff he responded appropriately and cooperated very well during physical examination. 1799 orders are already placed in patient needs sitter. We will also get the psychiatric consultation. Patient denies any excessive pain over the head , no headaches. 03/24/2025 the the patient has been medically cleared to be evaluated by [facility] yesterday however the patient has a episode of expressive aphasia this morning that lasted less than 15 minutes a evaluation for seizure with a 24 hours video EEG is in process and will be completed late tomorrow morning. Left subdural hematoma status post craniectomy on 03/17/2025 GCS: 15 Skull has been closed with absorbable suture and Dermabond Continue to monitor for surgical wound for infection Follow up with Neurosurgery Clinic in two weeks No further imaging required Appreciate neurosurgery recommendations from [facility] as per above On [facility] Transient metabolic encephalopathy Telemedicine neurology consult with Sha Munoz recommended a 24 hour video assisted EEG which the patient is in the midst of Continue [facility] Right hand committed at fracture X-ray:acute comminuted, mildly displaced fracture of the distal part of the 3rd digit distal phalanx Pain management Right hand weakness Likely secondary to acute fracture has a 3rd phalanges however an MRI of the head with IV contrast is ordered. MRI demonstrates the following findings: "No acute cerebrovascular ischemia. Left frontoparietal extra-axial fluid collection measuring 14 mm in thickness at the site of the craniotomy. This measures approximately 5.6 cm AP x 1.4 cm tr ansverse. Overall, this appears similar to the previous examination. Residual left frontal and temporal subdural hematoma measuring up to 5 mm in thickness. 3 mm [id number]-[id number] midline shift, similar to prior CT." Bipolar PTSD Depression Suicidal intention Psychiatric consultation requested Code status: Full code Diet: Regular DVT prophylaxis: SCD Patient is medically cleared by hospitalist team ( Dr Ambrose and by me ) . he was evaluated by [facility]. They also cleared the patient in they do not want to hold the patient please see details in the documentation. Physical therapy evaluation done I observe the patient while walking . he can ambulate and do not want to use a front wheel walker but his balance and gait is stable. Patient does not have any new focal neurological changes. When I evaluated him yesterday he was sitting on recliner watching TV, looks comfortable I did not noticed any focal neurological deficit in he looked much better since I saw him last. He has been afebrile getting discharged in stable condition. Patient is seen and examined on the day of discharge. Discharge instructions provided to the patient. All questions and concerns answered to the best of my professional medical knowledge. Please follow-up with PCP/ [facility] / urgent care in one week. Provide fall precautions document. Activity as tolerated. Hydrate more than 1000 mL fluid per day. Patient is advised to use cane for ambulation. It is strongly recommended that take the Keppra as prescribed and do not stop it. 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 Eyes-no icterus or pallor seen in eyes Chest-clear to auscultation bilaterally, breathing nonlabored no tachypnea, no wheezing, no crepitation, no crackles. Heart-S1-S2 normal, regular heart rate no murmur Abdomen bowel sounds positive on auscultation, soft nondistended nontender no guarding, no rigidity Skin no active skin rash, status post craniotomy dressing in place over head, Neurology-grossly intact, awake oriented Extremity- no pedal edema able to move all 4 extremities Psychiatry - patient is not confused or agitated cooperated during physical examination *Problems/Diagnosis: (1) Major depressive disorder, recurrent severe without psychotic features (2) Subdural hematoma caused by concussion (3) Suicide attempt Total Time Spent on D/C: > 30 Minutes Date of Service: Mar 27, 2025 Billing Provider: BHUMIKA GILLILAND MD Common Visit Codes: 23904-CGS/OBS DISCH DAY >30min BHUMIKA GILLILAND MD Mar 27, 2025 18:57
[2025-03-27] MEDS ORDERED: LEVE100023 PO (21:34)
== END 2025-03-27 15:10 | disposition home or self-care (01) | DRG 85 ==
LOC: ORTHO 4S 20:33
PROVIDERS: ADMIT Internal Medicine; ATTEND Internal Medicine
PROC: BW281ZZ Computerized Tomography (CT Scan) of Head using Low Osmolar Contrast (ICD-10-PCS; principal; 2025-03-20)
PROC: BW281ZZ Computerized Tomography (CT Scan) of Head using Low Osmolar Contrast (ICD-10-PCS; 2025-03-24)
PROC: 4A00X4Z Measurement of Central Nervous Electrical Activity, External Approach (ICD-10-PCS; 2025-03-24)
DX: S06.5X0A Traumatic subdural hemorrhage without loss of consciousness, initial encounter (principal); G93.41 Metabolic encephalopathy; F33.2 Major depressive disorder, recurrent severe without psychotic features; R45.851 Suicidal ideations; S62.632A Displaced fracture of distal phalanx of right middle finger, initial encounter for closed fracture; F43.10 Post-traumatic stress disorder, unspecified; X58.XXXA Exposure to other specified factors, initial encounter; Y93.89 Activity, other specified; Y92.89 Other specified places as the place of occurrence of the external cause; Y99.8 Other external cause status
CPT/HCPCS: 36415; 70460; 70470; 70551; 80048; 80053; 82948; 83735; 84132; 84145; 85025; 85651; 87081; 95813; 97110; 97116; 97162; 97530; A4615; A6258; A6590; G0378; J2405; Q9967

== ENCOUNTER 2025-03-27 17:59 | Emergency (ER) | payer BC, MEDICAID ==
[~2025-03-27] VITALS: Ht 193 cm; Wt 86.2 kg
[~2025-03-27 17:59] MED LIST changes: +ACET-1008 PO
--- NOTE | 2025-03-27 18:58 | Physician Documentation ---
History of Present Illness ~ Chief Complaint: Head Injury Stated Complaint: HEAD INJURY Time Seen by MD: 18:22 OK to notify your PCP?: Yes HPI 29-year-old with extensive head injury did appear to be self-inflicted requiring a craniotomy done at [facility] but afterwards returned to [facility] and was discharged today. Patient was discharged to the [facility] but lips and cheek go and due to his frustration and monitoring he received a ticket for layering and hit his head on a railing and was transported back to us by EMS. Patient does have some deficits from the craniotomy and brain injury but does have a history of self-harming. Within the note prior to discharge patient was being medically cleared for a 1799 for mental health clearance. Medication Reconciliation Allergies: Uncoded Allergies: NKDA (Allergy, Unknown, 03/15/25) Scheduled Levetiracetam (Levetiracetam), 1 TAB PO Q12H, (Reported) Discontinued Medications Acetaminophen (Tylenol), 1 TAB PO Q8H PRN for pain or fever, (Reported) Discontinued Reason: Pt. condition changed Levetiracetam (Keppra), 1 TAB PO Q12H, (Reported) Discontinued Reason: Pt. 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 Lives In: Homeless Occupation: unemployed Review of Systems All Other Systems at this time: Reviewed and Negative Physical Exam Vital Signs: RN Vital Signs have been reviewed: Yes, Temperature: 98.1, Source: Oral, Heart Rate: 106, Respiratory Rate: 18, BP: 148/76, Pulse Oximetry: 99, Weight: 86.200 Oxygen Flow Rate: 0 Physical Exam General: Alert, no apparent distress. HEENT: PERRL, EOMI, no injection, moist mucous membranes. Cranial surgical site clean and dry without infection or opening with kulwinder present Neck: Full range of motion. No cervical spine tenderness Respiratory: Lungs clear, no respiratory distress. Chest: No accessory muscle use. Cardiovascular: Regular rate and rhythm, no murmurs. Gastrointestinal: Soft, nontender, nondistended. Bowels sounds present. Extremities: Normal range of motion, no deformity. Neurologic: Oriented x4. Slowed speech at baseline Psychiatric: Depressed mood Skin: Normal color, warm and dry. No edema, no ecchymosis. Progress Results/Orders Results/Orders Completed Orders - CATHERINE VUONG MD Diphenhydramine Capsule (Benadryl Capsul (03/31/25 00:10) Melatonin Tablet (Melatonin Tablet) (03/31/25 00:10) Cbc/Diff (04/01/25 13:47) CMP (04/01/25 13:47) Vital Signs 03/28/25 03/28/25 03/28/25 03/28/25 08:03 08:17 17:23 18:02 Temp 97.3 Pulse 72 Resp 16 14 14 16 B/P (MAP) 121/67 (85) Pulse Ox 96 O2 Flow Rate 0 03/29/25 03/29/25 03/29/25 03/29/25 06:12 07:52 08:32 17:41 Temp 97.6 98.3 Pulse 64 91 Resp 17 14 16 B/P (MAP) 125/67 (86) 135/78 (97) Pulse Ox 97 99 O2 Flow Rate 0 03/29/25 03/30/25 03/30/25 03/30/25 19:08 05:46 09:07 20:02 Temp 98.4 Pulse 63 Resp 16 16 16 B/P (MAP) 130/71 (90) Pulse Ox 98 O2 Flow Rate 0 03/30/25 03/31/25 03/31/25 03/31/25 21:02 04:48 06:05 07:58 Temp 97.3 Pulse 64 Resp 18 16 16 15 B/P (MAP) 127/72 (90) Pulse Ox 98 O2 Flow Rate 0 03/31/25 03/31/25 03/31/25 03/31/25 08:15 17:56 18:43 19:45 Temp 97.4 Pulse 77 Resp 14 19 14 16 B/P (MAP) 125/70 (88) Pulse Ox 100 O2 Flow Rate 0 03/31/25 04/01/25 04/01/25 04/01/25 20:45 05:47 08:46 09:46 Temp 97.4 Pulse 70 Resp 16 16 16 16 B/P (MAP) 114/62 (79) Pulse Ox 98 04/01/25 11:42 Resp 16 B/P (MAP) Laboratory Tests Test 03/27/25 19:20 03/27/25 19:21 03/27/25 20:20 04/01/25 14:03 Urine Specimen Description Cln catch midstream Urine Color Yellow Urine Clarity Clear Urine pH 6.0 Urine Specific [place] 1.025 Urine Protein Negative Urine Glucose (UA) Negative Urine Ketones Negative Urine Occult Blood Negative Urine Nitrite Negative Urine Bilirubin Negative Urine Urobilinogen 0.2 Urine Leukocyte Esterase Negative Volume Urine Centrifuged 10 ml Urine Comment Urine Opiates Screen Positive Urine Methadone Screen Negative Urine Fentanyl Screen Negative Urine Barbiturates Screen Negative Urine Phencyclidine Screen Negative Urine Amphetamines Screen Negative Urine Benzodiazepines Screen Negative Urine Cocaine Screen Negative Urine Cannabinoids Screen Negative Drug Screen Comment White Blood Count 10.6 6.3 Red Blood Count 3.81 L 3.81 L Hemoglobin 11.6 L 11.7 L Hematocrit 34.5 L 34.6 L Mean Corpuscular Volume 90.5 90.6 Mean Corpuscular Hemoglobin 30.5 30.7 Mean Corpuscular Hemoglobin Concent 33.6 33.8 Red Cell Distribution Width 13.6 14.0 Platelet Count 294 281 Mean Platelet Volume 7.8 7.4 Neutrophils (%) (Auto) 72.7 55.4 Lymphocytes (%) (Auto) 15.8 L 25.9 Monocytes (%) (Auto) 8.5 12.7 H Eosinophils (%) (Auto) 2.0 4.6 Basophils (%) (Auto) 1.0 1.4 H Neutrophils # (Auto) 7.7 3.5 Lymphocytes # (Auto) 1.7 1.6 Monocytes # (Auto) 0.9 0.8 Eosinophils # (Auto) 0.2 0.3 Basophils # (Auto) 0.1 0.1 CBC Comment Sodium Level 140 137 Potassium Level 3.9 4.0 Chloride Level 104 101 Carbon Dioxide Level 32.8 H 31.0 Anion Gap 3 L 5 L Blood Urea Nitrogen 29 H 21 H Creatinine 0.89 1.02 Estimated GFR/1.73 m2 > 90 > 90 BUN/Creatinine Ratio 32.6 H 20.6 H Glucose Level 101 96 Calcium Level 9.2 8.5 Albumin 3.5 3.2 L Thyroid Stimulating Hormone (TSH) 1.60 Chemistry Comments Ethyl Alcohol Level < 10 SARS-CoV-2 Antigen (Rapid) Negative Total Bilirubin 0.2 Aspartate Amino Transf (AST/SGOT) 15 Alanine Aminotransferase (ALT/SGPT) 27 Alkaline Phosphatase 87 Total Protein 6.2 L Globulin 3.0 Albumin/Globulin Ratio 1.[address] Making Findings CT to evaluate due to new recent self-harm head injury prior to medical clearance for 1798 and mental health evaluation. Differential diagnosis includes but is not limited to: SUICIDAL, DEPRESSION, CT HEAD WITHOUT IV CONTRAST, INDICATION: RECENT BRAIN SURGERY IMPRESSION: Postsurgical changes of left craniotomy again noted. Left subdural collection with layering hyperdense material appears slightly decreased in thickness, now measuring up to 1.1 cm. Layering hyperdenity and foci of pneumocephalus appear slightly decreased as well. There is persistent 2-3 mm of rightward midline shift. No new or enlarging areas of intracranial hemorrhage are identified at this time. The basilar cisterns are patent. The visualized paranasal sinuses and mastoid air cells are clear. IMPRESSION: As above. Laboratory data independent interpretation: CBC: MILD ANEMIA WITH A HEMOGLOBIN OF 11.6 CMP: UNREMARKABLE Toxicology: UNREMARKABLE, NEGATIVE FOR ALCOHOL Serology: Urinalysis: UNREMARKABLE Emergency department course/medical decision-making: Patient is a 29-year-old man who had a recent admission here and was discharged yesterday. Patient is from [place] and is trying to get home. Patient is feeling suicidal because he is unable to get home. Patient is having difficulties coping. Patient is neurologically intact. Patient mental status is at baseline. Patient is medically cleared and stable for psychiatric evaluation. Case management will also been involved. Case management consult has been ordered. Consultation/communications: Tele psych consultation pending Case management/marriage and family social worker consultation pending March 31, 2025, 2:52 p.m.: Patient remains medically cleared and stable for [facility] evaluation and psychiatric hospitalization. Departure Disposition: 09 ADMITTED INPATIENT Impression: Primary Impression: Major depressive disorder, recurrent severe without psychotic features Additional Impression: Suicide attempt Condition: Fair Referrals: NO PRIMARY CARE PROVIDER (PCP) Signature Scribe Signature: No scribe Attestation: The note accurately reflects work and decisions made by me.Judit STINSON 03/27/25 18:57 Addendum Reviewed patient's case and spoke with nurses regarding patient. No acute events overnight. Patient is resting comfortably and we will wait psychiatric evaluation and possible placement. Vitals reassuring General: Patient is sleeping comfortably in no acute distress Head: Normocephalic and atraumatic. ENT: Mucous membranes moist. Neck: Supple, trachea is midline. Chest: Clear to auscultation bilaterally without rales, rhonchi, or wheezes. There is no accessory muscle use or retractions. Cardiac: RRR without murmurs, gallops, or rubs. Plan: We will continue to monitor patient. At this time I do not see a reason for repeat labs/ imaging Addendum Placement requested repeat labs. Labs reviewed and are reassuring and in fact improved since last draw. Patient is now medically cleared for mental health evaluation JUDIT CALL NP Mar 27, 2025 18:58 AMANDA WOMACK MD Mar 27, 2025 20:24 CATHERINE VUONG MD Apr 01, 2025 08:44
[2025-03-27 19:29] LABS: MEAN PLATELET VOLUME 7.8 FL (7.4-10.4); RED CELL DISTRIBUTION WIDTH 13.6 % (11.5-14.5)
[2025-03-27 19:34] LABS: LEUKOCYTE ESTERASE ,URINE NEGATIVE (Neg); NITRITES, URINE NEGATIVE (Neg); OCCULT BLOOD,URINE NEGATIVE (Neg); UA COLLECTION TYPE CLN CATCH MIDSTREAM
[2025-03-27 19:51] LABS: CREATININE 0.89 MG/DL (0.60-1.10); TOTAL CARBON DIOXIDE 32.8 MMOL/L (24-32); eCRCL 147 ML/MIN; eGFR > 90 ML/MIN
[2025-03-27 20:07] LABS: ETHANOL < 10 MG/DL (<10)
[2025-03-27 20:07] LABS: URINE AMPHETAMINE SCREEN NEGATIVE (Neg); URINE BARBITUATE SCREEN NEGATIVE (Neg); URINE BENZODIAZEPINES SCREEN NEGATIVE (Neg); URINE CANNABINOID SCREEN NEGATIVE (Neg); URINE COCAINE SCREEN NEGATIVE (Neg); URINE METHADONE SCREEN NEGATIVE (Neg); URINE OPIATE SCREEN POSITIVE (Neg); URINE PHENCYCLIDINE SCREEN NEGATIVE (Neg)
--- NOTE | 2025-03-27 20:17 | RADIOLOGY REPORT ---
CT BRAIN WITHOUT CONTRAST HISTORY: hit head s/p craniotomy TECHNIQUE: Axial scans were obtained from the skull base through the vertex without contrast. Sagitta l and coronal reformats were generated. One or more of the following radiation dose reduction techniq ues were used for this examination: automated exposure control, adjustment of the mA and/or kV accord ing to patient size, use of iterative reconstruction technique. COMPARISON: CT CT HEAD on DOS: 03/24/25 FINDINGS: Postsurgical changes of left craniotomy again noted. Left subdural collection with layering hyperdens e material appears slightly decreased in thickness, now measuring up to 1.1 cm. Layering hyperdenity and foci of pneumocephalus appear slightly decreased as well. There is persistent 2-3 mm of rightward midline shift. No new or enlarging areas of intracranial hemorrhage are identified at this time. The basilar cister ns are patent. The visualized paranasal sinuses and mastoid air cells are clear. IMPRESSION: As above.
[2025-03-27] MEDS ORDERED: LEVE100023 PO (21:34)
[2025-03-27] MEDS: HYDROcodone/acetaminophen 5mg/325mg tablet PO PRN (21:57)
--- NOTE | 2025-03-31 23:28 | RADIOLOGY REPORT ---
COMPUTERIZED TOMOGRAPHY OF THE HEAD WITHOUT CONTRAST REASON FOR STUDY: trauma. prior bleed COMPARISON: CT CT HEAD on DOS: 03/27/25, CT CT HEAD on DOS: 03/24/25, MR MRI HEAD on DOS: 03/22/25, CT C T HEAD W/ IV CONTRAST on DOS: 03/20/25, CT HEAD WITHOUT CONTRAST on DOS: 03/17/25 TECHNIQUE: Helical tomographic scans were obtained through the brain. 2-D coronal and sagittal refor matted images are provided. Radiation optimization: All CT scans at this facility use at least one of these dose optimization techniques: Automated exposure control mA and/or kV adjustment per patient s ize (includes targeted exams where dose is matched to clinical indication) or iterative reconstructio n. RADIATION DOSE: CTDI: 63 mGy DLP: 1219 mGy-cm FINDINGS: There are surgical changes associated with left frontoparietal craniotomy. The mixed densi ty, subacute hematoma deep to the craniotomy over the left frontal and parietal lobes is unchanged in appearance and measures approximately 10 mm, unchanged. There is mild sulcal effacement in the left frontoparietal region. There is approximately 2 mm rightward shift, unchanged. No new intracranial he morrhage is identified. There is mild effacement of the left lateral ventricle, unchanged. There is n o herniation. There is no hydrocephalus. The visualized paranasal sinuses and mastoid air cells are c lear. Left frontoparietal scalp hematoma is unchanged. IMPRESSION: Unchanged appearance of approximately 10 mm left frontoparietal subacute subdural hematoma deep to a craniotomy. No new intracranial hemorrhage is identified.
--- NOTE | 2025-04-01 06:41 | ELECTROCARDIOGRAPH REPORT ---
[facility] Test Date: 2025-04-01 Test Time: 04:51:25 Pat Name: KANNAN JASMINE Department: [facility]- Patient ID: [facility]-[id number] Room: Gender: M Forgesmith: : 1995 Requested By: KEVYN WYATT Order Number: [id number] Reading MD: Dr. Kevyn Wyatt Measurements Intervals [place] Rate: 75 P: 52 UT: 183 QRS: 64 QRSD: 97 T: 64 QT: 386 QTc: 432 Interpretive Statements Sinus rhythm RSR' in V1 or V2, probably normal variant Electronically Signed On 04-01-2025 6:49:[address] Kevyn Wyatt Please click the below link to view image of tracing.
[2025-04-01 14:21] LABS: MEAN PLATELET VOLUME 7.4 FL (7.4-10.4); RED CELL DISTRIBUTION WIDTH 14.0 % (11.5-14.5)
[2025-04-01 14:38] LABS: CREATININE 1.02 MG/DL (0.60-1.10); TOTAL CARBON DIOXIDE 31.0 MMOL/L (24-32); eCRCL 128 ML/MIN; eGFR > 90 ML/MIN
[2025-04-05 12:27] VITALS: BP 138/72; PULSE 73; RESP 18; TEMP 97.4; O2SAT 99
== END 2025-04-05 12:32 | disposition home or self-care (01) ==
LOC: ER 18:00
DX: F33.2 Major depressive disorder, recurrent severe without psychotic features (principal); R51.9 Headache, unspecified; T14.91XA Suicide attempt, initial encounter; Z20.822 Contact with and (suspected) exposure to COVID-19; X83.8XXA Intentional self-harm by other specified means, initial encounter; Y93.89 Activity, other specified; Y92.89 Other specified places as the place of occurrence of the external cause; Y99.8 Other external cause status
CPT/HCPCS: 36415; 70450; 80048; 80053; 80305; 80320; 81003; 84443; 85025; 87811; 99285